=== PATIENT | male | born 1975 | race Two or more races ===

== ENCOUNTER 2017-04-30 22:49 | Emergency (ER) | payer MEDICAID ==
[~2017-04-30] VITALS: Ht 182.9 cm; Wt 117.9 kg
[2017-04-30 23:40] LABS: Albumin 3.4 g/dL (3.4-5.0); BUN/Creatinine Ratio 22.9; Calcium 8.2 mg/dL (8.5-10.1); Potassium 4.4 mmol/L (3.5-5.1)
[2017-04-30 23:42] LABS: Bilirubin, Total 0.3 mg/dL (0.2-1.0); Total Protein 6.8 g/dL (6.4-8.2)
[2017-04-30 23:46] LABS: Basophils # (auto) 0 uL; Basophils % (auto) 0.3 % (0.0-2.0); CONDITION Y; Eosinophils # (auto) 0.3 uL; Eosinophils % (auto) 5.9 % (0.0-7.0); Hematocrit 41.2 % (41.0-53.0); Hemoglobin 13.8 g/dL (13.5-17.5); Lymphocytes # (auto) 1.8 uL; Lymphocytes % (auto) 39.3 % (10.0-50.0); Mean Corpuscular Hemoglobin 30.4 pg (28.0-32.0); Mean Corpuscular Hgb Conc. 33.5 g/dL (32.0-36.0); Mean Corpuscular Volume 90.7 fL (80.0-100.0); Mean Platelet Volume 9.6 fL (7.4-10.4); Monocytes # (auto) 0.5 uL; Monocytes % (auto) 10.9 % (0.0-12.0); Neutrophils % (auto) 43.6 % (37.0-80.0); Platelet Count (auto) 182 10^3/uL (140-450); Red Cell Distribution Width 13.9 % (11.6-16.0); White Blood Cell 4.5 10^3/uL (4.4-10.8)
[2017-05-01 05:23] VITALS: BP 109/86
[2017-05-01 05:48] LABS: Urine RBC None Seen /hpf (0 - 3)
[2017-05-01 05:54] LABS: Urine Bilirubin Negative (Negative); Urine Blood Negative /uL (Negative); Urine Color Yellow (Yellow); Urine Glucose Normal (Normal); Urine Ketone Negative (Negative); Urine Nitrite Negative (Negative); Urine Urobilinogen Normal (Negative); Urine pH 5.5 (5.0-8.0)
== END 2017-05-01 06:21 | disposition home or self-care (01) ==
LOC: EDBD 22:49 → ER 22:53
DX: R55 Syncope and collapse (principal); E86.0 Dehydration; E87.0 Hyperosmolality and hypernatremia; Z90.49 Acquired absence of other specified parts of digestive tract
CPT/HCPCS: 36415; 70450; 80053; 80307; 81001; 85025; 93005

== ENCOUNTER 2020-06-04 11:20 | Emergency (ER) | payer MEDICAID ==
[~2020-06-04] VITALS: Ht 185.4 cm; Wt 124.7 kg
[2020-06-04 12:22] VITALS: BP 117/72
[2020-06-04] MEDS ORDERED: LIDOCAINE 1% HCL (LOCAL ANESTH.) INJ 20ML MDV IJ ONE (13:15)
== END 2020-06-04 13:52 | disposition home or self-care (01) ==
LOC: ER 11:20 → EDBD 11:20 → ER 13:52
DX: S91.312A Laceration without foreign body, left foot, initial encounter (principal); Z90.49 Acquired absence of other specified parts of digestive tract; X58.XXXA Exposure to other specified factors, initial encounter; Y93.89 Activity, other specified; Y92.89 Other specified places as the place of occurrence of the external cause; Y99.8 Other external cause status
CPT/HCPCS: 12001; 99283; J2001

== ENCOUNTER 2020-09-01 21:48 | Emergency (ER) | payer MEDICAID ==
[~2020-09-01] VITALS: Ht 182.9 cm; Wt 127.0 kg
[2020-09-01 23:12] LABS: Basophils # (auto) 0 10 ^3/uL (0-0.2); Basophils % (auto) 0.7 % (0.0-2.0); Eosinophils # (auto) 0.2 10 ^3/uL (0-0.8); Eosinophils % (auto) 4.5 % (0.0-7.0); Hematocrit 44.8 % (41.0-53.0); Hemoglobin 14.8 g/dL (13.5-17.5); Lymphocytes # (auto) 1.5 10 ^3/uL (0.4-5.4); Lymphocytes % (auto) 29.2 % (10.0-50.0); Mean Corpuscular Hemoglobin 30.3 pg (28.0-32.0); Mean Corpuscular Volume 91.9 fL (80.0-100.0); Monocytes # (auto) 0.5 10 ^3/uL (0-1.3); Monocytes % (auto) 9.7 % (0.0-12.0); Neutrophils % (auto) 55.9 % (37.0-80.0); Nucleated Red Blood Cells % 0.2 %; Platelet Count (auto) 171 10^3/uL (140-450); Red Blood Cells 4.87 10^6/uL (4.5-5.90); Red Cell Distribution Width 13.5 % (11.8-14.3); White Blood Cell 5.3 10^3/uL (4.4-10.8)
[2020-09-01 23:29] LABS: Alanine Aminotransferase 36 U/L (16-61); Albumin 3.7 g/dL (3.4-5.0); Anion Gap 3 (5-15); Aspartate Aminotransferase 12 U/L (15-37); BUN/Creatinine Ratio 21.3; Blood Alcohol < 3.0 mg/dL (0-5); Blood Urea Nitrogen 20 mg/dL (7-18); Calcium 8.1 mg/dL (8.5-10.1); Carbon Dioxide 28 mmol/L (21-32); Chloride 110 mmol/L (98-107); GFR African American 112 mL/min; GFR Non-African American 92 mL/min; Glucose 98 mg/dL (74-106); Potassium 4.1 mmol/L (3.5-5.1); Sodium 141 mmol/L (136-145)
[2020-09-01] MEDS ORDERED: SODIUM CHLORIDE 0.9% 1,000 ML IV ONE (23:30)
[2020-09-01 23:35] LABS: Alkaline Phosphatase 127 U/L (45-117); Bilirubin, Total 0.3 mg/dL (0.2-1.0); Total Protein 7.3 g/dL (6.4-8.2)
[2020-09-01 23:40] LABS: Magnesium 2.1 mg/dL (1.6-2.6)
[2020-09-01 23:47] LABS: INR 0.92 (0.9-1.15); Partial Thromboplastin Time 25.4 sec (23.0-31.2)
[2020-09-02 02:45] VITALS: BP 142/96
== END 2020-09-02 03:18 | disposition home or self-care (01) ==
LOC: ER 21:48
DX: H53.8 Other visual disturbances (principal); F41.9 Anxiety disorder, unspecified; R20.2 Paresthesia of skin; E78.5 Hyperlipidemia, unspecified; Z90.49 Acquired absence of other specified parts of digestive tract
CPT/HCPCS: 36415; 70450; 80053; 80320; 83735; 84484; 85025; 85610; 85730; 93005

== ENCOUNTER 2020-12-29 10:35 | Emergency (ER) | payer MEDICAID ==
[~2020-12-29] VITALS: Ht 182.9 cm; Wt 127.0 kg
[2020-12-29 10:41] VITALS: BP 105/72
== END 2020-12-29 12:12 | disposition home or self-care (01) ==
LOC: ER 10:35
DX: R05 Cough (principal); E78.5 Hyperlipidemia, unspecified; Z90.49 Acquired absence of other specified parts of digestive tract
CPT/HCPCS: 71045